=== PATIENT | female | born 1980 ===

== ENCOUNTER 2017-04-14 16:30 | Inpatient (IN) | payer MEDICAID ==
[2017-04-14] MEDS: Lactated Ringer's 1,000 ML IV SCH ×2 (17:00→17:45)
[2017-04-14 18:02] LABS: BASO % 0.5 % (0.0-2.0); EOS % 0.2 % (0.0-4.0); HEMATOCRIT 36.9 % (34.0-47.0); LYMPH # 1.7 K/uL (1.0-4.3); LYMPH % 17.8 % (20.0-40.0); MEAN CELL VOLUME 84.8 fl (81.0-99.0); MEAN CORPUSCULAR HEMOGLOBIN 27.8 pg (27.0-31.0); MEAN CORPUSCULAR HGB CONC 32.8 g/dL (33.0-37.0); MEAN PLATELET VOLUME 8.8 fl (7.2-11.7); MONO # 0.5 K/uL (0.0-0.8); MONO % 5.5 % (0.0-10.0); NEUT # 7.3 K/uL (1.8-7.0); NRBC % 0.1 % (0.0-0.0); RED CELL DISTRIBUTION WIDTH 14.1 % (11.5-14.5); WHITE BLOOD COUNT 9.6 K/uL (4.8-10.8)
--- NOTE | 2017-04-14 18:56 | OBHP ---
Datetime: 04/14/2017 17:30 Pelvic Type - PN: Adequate Extremities - PN: Normal Abdomen - PN: Normal Back - PN: Normal Breast - PN: Not Done Lungs - PN: Normal Heart - PN: Normal Thyroid - PN: Normal Neurologic - PN: Normal HEENT - PN: Normal General - PN: Normal Presentation-Admit: Vertex FHR - Baseline A Provider: 130 Gestation - Est Wks by US: 39.2 (Annotations: Data stored by CPN on behalf of user) IP Hx Assessment: The History has been Reviewed and is Current EGA AdmitDate IP: 39.2 IP Chief Complaint: Uterine contractions NICHD Variability Prov Fetus A: Moderate 6-25bpm NICHD Accel Fetus A IP Provider: 15X15 FHR Category Provider Fetus A: Category I NICHD Decel Fetus A IP Provider: None Dilatation, Provider: 5 Effacement, Provider: 90 Station, Provider: -1 Genitourinary Exam: Normal DTRs - PN: Normal Datetime: 04/14/2017 17:19 IP Adm Impression: Term, intrauterine ; Active labor IP Admit Plan: Admit to unit; Initiate labor protocol Admit Comment, IP Provider: 36 y/o at 39.2 presenting with cc of contractions since 10am this m orning, pt report contractions are now about 5mins about and rates the pain about to be about a 8/10. Denies any vaginal bleeding or leakage of fluid. + movement. No other complaints otherwise PMHX: denies PSHX: denies Allergies: denies OBHX: Previous @ 39+7 , child about 6pounds no complications care: [facility] No complications with this pregancy GBS neg Rubella- non immune Rh postive RPR, HIV- negative PE Gen: pleasant, no acute distress Resp: CTA B/L Card: RRR, S1 S2 present Abdomen: Gravid uterus, soft, BS+ Extremities: trace edema b/l, no cyanosis cervix: 5/90/-1 A/p 36 y/o female at at 39.2 in an uncomplicated presenting in active labor Pt will be admited to labor and delivery for further management Levy Smith PGY 1 OB Hospitalist note: This pt was seen and examined by me. Agree with above note. MEMO IP Fetus A Comments: Sonogram cephalic Comments, ACOG Physical Exam: ROS: General: no weakness; no fatigue HEENT: no ESTRADA; no visual dist CV: no palpitations; no no CP GI: no N/V no diarhea No epigastric pain; non radiating : no F/U/D MS: No joint pain Pool Provider: Negative Vital Signs Provider: Reviewed
[2017-04-14] MEDS ORDERED: Fentanyl/Bupivacaine HCl 250 ML EPI ONE (19:07)
--- NOTE | 2017-04-14 19:15 | OBADHP ---
Datetime: 04/14/2017 17:30 Admit Comment, IP Provider: 36 y/o at 39.2 presenting with cc of contractions since 10am this m orning, pt report contractions are now about 5mins about and rates the pain about to be about a 8/10. Denies any vaginal bleeding or leakage of fluid. + movement. No other complaints otherwise PMHX: denies PSHX: denies Allergies: denies OBHX: Previous @ 39+7 , child about 6pounds no complications No complications with this pregancy GBS neg Rubella- non immune Rh postive RPR, HIV- negative A/p 36 y/o female at at 39.2/ active labor Admit to L_D Necessary consents obtained Labs as ordered continue to monitor status manage labor as ordered Luis Lockett PGY 3 ROS: General: no weakness; no fatigue HEENT: no ESTRADA; no visual dist CV: no palpitations; no no CP GI: no N/V no diarhea No epigastric pain; non radiating : no F/U/D MS: No joint pain OB Hospitalist note: This pt was seen and examined by me. Agree with above note. MAHNDO Pelvic Type - PN: Adequate Extremities - PN: Normal Abdomen - PN: Normal Back - PN: Normal Breast - PN: Not Done Lungs - PN: Normal Heart - PN: Normal Thyroid - PN: Normal Neurologic - PN: Normal HEENT - PN: Normal General - PN: Normal Presentation-Admit: Vertex FHR - Baseline A Provider: 130 Gestation - Est Wks by US: 39.2 (Annotations: Data stored by CPN on behalf of user) IP Hx Assessment: The History has been Reviewed and is Current IP Chief Complaint: Uterine contractions NICHD Variability Prov Fetus A: Moderate 6-25bpm NICHD Accel Fetus A IP Provider: 15X15 FHR Category Provider Fetus A: Category I NICHD Decel Fetus A IP Provider: None Dilatation, Provider: 5 Effacement, Provider: 90 Station, Provider: -1 Genitourinary Exam: Normal DTRs - PN: Normal EGA AdmitDate IP: 39.2 Datetime: 04/14/2017 17:19 IP Fetus A Comments: Sonogram cephalic Comments, ACOG Physical Exam: ROS: General: no weakness; no fatigue HEENT: no ESTRADA; no visual dist CV: no palpitations; no no CP GI: no N/V no diarhea No epigastric pain; non radiating : no F/U/D MS: No joint pain Pool Provider: Negative Vital Signs Provider: Reviewed IP Adm Impression: Term, intrauterine ; Active labor IP Admit Plan: Admit to unit; Initiate labor protocol
--- NOTE | 2017-04-14 19:49 | OBPN ---
Datetime: 04/14/2017 19:44 IP Progress Impression: Reassuring heart rate IP Informed Consent Obtain: Vaginal Delivery; Risks, Benefits and Alternatives Discussed IP Procedures: Artificial ROM IP Progress Plan: Continue present management; Augmentation Pool Provider: Positive Membranes, Provider: Ruptured Contraction Comments Provider: 2m FHR - Baseline A Provider: 125 Presentation-Admit: Vertex IP Progress Note Comment: She rec'd epidural...she feels much better. A: IUP at 39w active phase of labor PLAN: AROM clear fluid augmentatoin NICHD Accel Fetus A IP Provider: 15X15 FHR Category Provider Fetus A: Category I NICHD Variability Prov Fetus A: Moderate 6-25bpm Dilatation, Provider: 6 Effacement, Provider: 80 Station, Provider: -1 NICHD Decel Fetus A IP Provider: None Datetime: 04/14/2017 17:30 Gestation - Est Wks by US: 39.2 (Annotations: Data stored by CPN on behalf of user) Datetime: 04/14/2017 17:19 IP Fetus A Comments: Sonogram cephalic Vital Signs Provider: Reviewed
[2017-04-14] MEDS ORDERED: Lactated Ringer's 1,000 ML IV SCH (20:00)
[2017-04-14] MEDS ORDERED: Oxycodone/Acetaminophen 5/325 mg Tab PO PRN ×4 (21:44→23:47)
[2017-04-14] MEDS ORDERED: Benzocaine/Menthol SPRAY TOP PRN ×2 (21:44→23:47)
--- NOTE | 2017-04-15 01:59 | OBDS ---
DELIVERY PERSONNEL Delivery Doctor: Darius Cortez DO Test Puller: Lupe Milan RN Anesthesiologist: Gunnar Resident: Darin MATERNAL INFORMATION Delivery Anesthesia: Epidural Medications in Delivery: Oxytocin 20 units in 1000 mL; Lidocaine Estimated Blood Loss (ml): 200 Placenta Cultured: No Maternal Complications: None Provider Comments: Over intact perineum, of live male at 20:39, Weight 3300gm, 9/9 . loose Nuchal cord was noted. Infant was bulb suctioned nasopharygeally and started crying spontaneo usly. umbilical cord was clamped and cut by father. Skin to skin was done with mother. Placenta was d elivered intact spontaneously. Repair was done as above. EBL 200cc. patient and baby remained stable in --- Shashank Webster, PGY-1 OB Hospitalist note: This pt delivered by me. Agree with above note. MAHNDO LABOR SUMMARY EDC: 04/19/2017 00:00 No. Babies in Womb: 1 Attempted: No Labor Anesthesia: Epidural LABOR INFORMATION Reason for Induction: Not Applicable Onset of Labor: 04/14/2017 14:00 Complete Dilatation: 04/14/2017 20:20 Oxytocin: N/A Group B Beta Strep: Negative Steroids Given: None Reason Steroids Not Administered: Not Applicable MEMBRANES Membranes Rupture Method: Artificial Rupture of Membranes: 04/15/2017 19:45 Length of Rupture (hrs): -23.10 Amniotic Fluid Color: Clear Amniotic Fluid Amount: Moderate Amniotic Fluid Odor: Normal STAGES OF LABOR Stage 1 hrs: 6 Stage 1 min: 20 Stage 2 hrs: 0 Stage 2 min: 19 Stage 3 hrs: 0 Stage 3 min: 14 Total Time in Labor hrs: 6 Total Time in Labor min: 53 VAGINAL DELIVERY Episiotomy: None Laceration Extension: Second Degree Laceration Type: Perineal Laceration Repair: Yes Laceration Repair Note: Repair of second degree perineal laceration with 1% 3cc local lidocaine and 2-0 vicryl rapid. Initial Vag Sponge Count: 10 Final Vag Sponge Count: 10 Initial Vag Sharps Count: 3 Final Vag Sharps Count: 3 Sponge Count Correct: Yes Sharps Count Correct: Yes Count Comment: 5 songes counted 3 sharps counted MD aware CSECTION DELIVERY Primary Indication: N/A Secondary Indication: N/A CSection Incision: N/A BABY A INFORMATION Infant Delivery Date/Time: 04/14/2017 20:39 Method of Delivery: Vaginal Born in Route : No : N/A Forceps: N/A Vacuum Extraction: N/A Shoulder Dystocia : No SHOULDER DYSTOCIA BABY A Infant Delivery Date/Time: 04/14/2017 20:39 PRESENTATION/POSITION BABY A Presentation: Cephalic Cephalic Presentation: Vertex PLACENTA INFORMATION BABY A Placenta Delivery Time : 04/14/2017 20:53 Placenta Method of Delivery: Spontaneous Placenta Status: Delivered SCORES BABY A Heart Rate 1 min: >100 bpm Resp Effort 1 min: Good Cry Reflex Irritability 1 min: Cough or Sneeze or Pulls Away Muscle Tone 1 min: Active Motion Color 1 min: Body [place], Extremities Blue SCORE 1 MIN: 9 Heart Rate 5 min: >100 bpm Resp Effort 5 min: Good Cry Reflex Irritability 5 min: Cough or Sneeze or Pulls Away Muscle Tone 5 min: Active Motion Color 5 min: Body [place], Extremities Blue SCORE 5 MIN: 9 INFANT INFORMATION BABY A Gestational Age at Delivery: 39.2 Gestational Status: Term Outcome : Liveborn Condition : Stable Sex: Male IDENTIFICATION/MEDS BABY A ID Band Number: [id number] ID Band Location: Left Leg; Left Arm WEIGHT/LENGTH BABY A Infant Birthweight (gms): 3300 Weight (lb): 7 Weight (oz): 4 CORD INFORMATION BABY A No. Cord Vessels: 3 Nuchal Cord : N/A Cord Blood Taken: Yes Infant Suction: None; Mouth
[2017-04-15 08:09] LABS: MEAN CELL VOLUME 83.8 fl (81.0-99.0); MEAN CORPUSCULAR HEMOGLOBIN 27.7 pg (27.0-31.0); RED CELL DISTRIBUTION WIDTH 14.4 % (11.5-14.5)
[2017-04-15] MEDS ORDERED: Rubella Virus Vaccine Inj SC ONE (17:22)
--- NOTE | 2017-04-15 20:05 | OBPPN ---
Datetime: 04/15/2017 07:12 PP Pain Prov: Within normal limits PP Nausea Prov: Denies PP Flatus Prov: No PP BM Prov: No PP Breasts Prov: Normal PP Heart Prov: Normal PP Lungs Prov: Normal PP Abdomen/Uterus Prov: Normal PP Lochia Prov: Normal PP Vulva/Perineum Prov: Normal PP CVA Tenderness Prov: Normal PP Extremities Prov: Normal PP Impression Prov: Normal progression; Pain PP Plan Prov: Continue present management PP Progress Note Prov: S: 36 yo s/p NVD on 04/14/17 at 20:39. Pt. is seen and examined at [facility] this AM. No overnight events. Pt reports back pain. Pt is ambulating without any difficulties and v oiding freely. Lochia is similar to light menses in volume. no BM, Denies fever/chills, diarrhea, na usea/vomiting, chest pain, dyspnea, and dizziness. Of note, O: VS: stable GEN: NAD Cardio: s1s2, no M/G/R Resp: clear breath sounds b/l Abdomen: BS+, NT, Uterus is firm and at the level of the umbilicus. EXT: No edema, calves nontender NEURO/PSYCHI: AAOx3, no grossly focal deficit, preserved affect and mood. Assessment/Plan: 36 yo s/p NVD on 04/14/17 at 20:39. PPD#1 Ibuprofen 600mg for pain. Colace 100mg PO BID for constipation Encourage and ambulating F/u CBC post-delivery: Rubella before discharge Tdap on 02/13 --- Shashank Webster, PGY-1 OB Hospitalist note: This pt was seen and examined by me. Agree with above note. MEMO IP PP Procedures: None IP PP Procedures Comments: Rubella before d/c Vital Signs Provider PP: Reviewed; Within Normal Limits
--- NOTE | 2017-04-16 07:44 | CP.PCM.PN ---
Subjective - Date & Time of Evaluation Date of Evaluation: 04/16/17 Time of Evaluation: 08:00 - Subjective Subjective: Patient denies positional headache since noon yesterday. She's been able to be upright and ambulate around her room without pain or difficulty. She agrees to have the epidural removed without blood patch. Objective - Vital Signs/Intake and Output Vital Signs (last 24 hours): Temp Pulse Resp BP Pulse Ox 96 H 18 106/69 04/14/17 17:17 04/14/17 17:17 04/14/17 17:17 - Medications Medications: Current Medications Benzocaine/Menthol (Dermoplast) 1 sprays TOP PRN PRN PRN Reason: Perineal Discomfort Last Admin: 04/15/17 00:07 Dose: 1 sprays Docusate Sodium (Colace) 100 mg PO BID JANAY Last Admin: 04/15/17 17:09 Dose: 100 mg Ibuprofen (Motrin Tab) 600 mg PO Q6 PRN PRN Reason: Pain, Mild (1-3) Last Admin: 04/15/17 21:20 Dose: 600 mg Oxycodone/Acetaminophen (Percocet 5/325 Mg Tab) 1 tab PO Q4 PRN PRN Reason: Pain, moderate (4-7) Stop: 04/17/17 21:45 Oxycodone/Acetaminophen (Percocet 5/325 Mg Tab) 2 tab PO Q4 PRN PRN Reason: Pain, severe (8-10) Stop: 04/17/17 21:45 - Labs Labs: 04/15/17 06:00 - Neck Exam Neck Exam: Full ROM, Normal Inspection - Respiratory Exam Respiratory Exam: NORMAL BREATHING PATTERN Assessment and Plan - Assessment and Plan (Free Text) Assessment: 36 yo woman s/p . Epidural removal was delayed until POD #2 due to possible post-dura puncture. Patient hasn't had headache despite being upright. - epidural d/nikki, tip intact - will monitor - encourage fluids, bed rest
[2017-04-16] MEDS ORDERED: Measles, Mumps, and Rubella 0.5 ML VIAL SC ONE (08:00)
[2017-04-16 19:36] VITALS: BP 95/63; PULSE 83; RESP 20; TEMP 97.8; O2SAT 100
--- NOTE | 2017-04-26 07:19 | OBDS ---
DELIVERY PERSONNEL Delivery Doctor: Darius Cortez DO [employer] Teacher: Lupe Milan RN Anesthesiologist: Gunnar Resident: Darin MATERNAL INFORMATION Delivery Anesthesia: Epidural Medications in Delivery: Oxytocin 20 units in 1000 mL; Lidocaine Estimated Blood Loss (ml): 200 Placenta Cultured: No Maternal Complications: None Provider Comments: Over intact perineum, of live male at 20:39, Weight 3300gm, 9/9 . loose Nuchal cord was noted. Infant was bulb suctioned nasopharygeally and started crying spontaneo usly. umbilical cord was clamped and cut by father. Skin to skin was done with mother. Placenta was d elivered intact spontaneously. Repair was done as above. EBL 200cc. patient and baby remained stable in --- Shashank Webster, PGY-1 OB Hospitalist note: This pt delivered by me. Agree with above note. MAHNDO LABOR SUMMARY EDC: 04/19/2017 00:00 No. Babies in Womb: 1 Attempted: No Labor Anesthesia: Epidural LABOR INFORMATION Reason for Induction: Not Applicable Onset of Labor: 04/14/2017 14:00 Complete Dilatation: 04/14/2017 20:20 Oxytocin: N/A Group B Beta Strep: Negative Steroids Given: None Reason Steroids Not Administered: Not Applicable MEMBRANES Membranes Rupture Method: Artificial Membranes Rupture Method: Artificial Rupture of Membranes: 04/15/2017 19:45 Rupture of Membranes: 04/14/2017 19:45 Length of Rupture (hrs): -23.10 Length of Rupture (hrs): 0.90 Amniotic Fluid Color: Clear Amniotic Fluid Color: Clear Amniotic Fluid Amount: Moderate Amniotic Fluid Amount: Moderate Amniotic Fluid Odor: Normal Amniotic Fluid Odor: Normal STAGES OF LABOR Stage 1 hrs: 6 Stage 1 min: 20 Stage 2 hrs: 0 Stage 2 min: 19 Stage 3 hrs: 0 Stage 3 min: 14 Total Time in Labor hrs: 6 Total Time in Labor min: 53 VAGINAL DELIVERY Episiotomy: None Laceration Extension: Second Degree Laceration Type: Perineal Laceration Repair: Yes Laceration Repair Note: Repair of second degree perineal laceration with 1% 3cc local lidocaine and 2-0 vicryl rapid. Initial Vag Sponge Count: 10 Final Vag Sponge Count: 10 Initial Vag Sharps Count: 3 Final Vag Sharps Count: 3 Sponge Count Correct: Yes Sharps Count Correct: Yes Count Comment: 5 songes counted 3 sharps counted MD aware CSECTION DELIVERY Primary Indication: N/A Secondary Indication: N/A CSection Incision: N/A BABY A INFORMATION Infant Delivery Date/Time: 04/14/2017 20:39 Method of Delivery: Vaginal Born in Route : No : N/A Forceps: N/A Vacuum Extraction: N/A Shoulder Dystocia : No SHOULDER DYSTOCIA BABY A Delivery Date/Time: 04/14/2017 20:39 PRESENTATION/POSITION BABY A Presentation: Cephalic Presentation: Cephalic Cephalic Presentation: Vertex PLACENTA INFORMATION BABY A Placenta Delivery Time : 04/14/2017 20:53 Placenta Method of Delivery: Spontaneous Placenta Status: Delivered SCORES BABY A Heart Rate 1 min: >100 bpm Resp Effort 1 min: Good Cry Reflex Irritability 1 min: Cough or Sneeze or Pulls Away Muscle Tone 1 min: Active Motion Color 1 min: Body [place], Extremities Blue SCORE 1 MIN: 9 Heart Rate 5 min: >100 bpm Resp Effort 5 min: Good Cry Reflex Irritability 5 min: Cough or Sneeze or Pulls Away Muscle Tone 5 min: Active Motion Color 5 min: Body [place], Extremities Blue SCORE 5 MIN: 9 INFORMATION BABY A Gestational Age at Delivery: 39.2 Gestational Status: Term Infant Outcome : Liveborn Condition : Stable Infant Sex: Male IDENTIFICATION/MEDS BABY A ID Band Number: [id number] ID Band Location: Left Leg; Left Arm WEIGHT/LENGTH BABY A Infant Birthweight (gms): 3300 Infant Weight (lb): 7 Infant Weight (oz): 4 CORD INFORMATION BABY A No. Cord Vessels: 3 Nuchal Cord : N/A Cord Blood Taken: Yes Infant Suction: None; Mouth
== END 2017-04-16 13:30 | disposition home or self-care (01) | DRG 373 ==
LOC: H.EROB2 16:30 → H.L&D 17:12 → H.OB/GYN 23:37
PROVIDERS: ADMIT Obstetrics & Gynecology; ATTEND Obstetrics & Gynecology
PROC: 10E0XZZ Delivery of Products of Conception, External Approach (ICD-10-PCS; principal; 2017-04-14)
PROC: 0KQM0ZZ Repair Perineum Muscle, Open Approach (ICD-10-PCS; 2017-04-14)
PROC: 4A1HXCZ Monitoring of Products of Conception, Cardiac Rate, External Approach (ICD-10-PCS; 2017-04-14)
DX: O69.81X0 Labor and delivery complicated by cord around neck, without compression, not applicable or unspecified (principal); K59.00 Constipation, unspecified; O70.1 Second degree perineal laceration during delivery; Z37.0 Single live birth; Z3A.39 39 weeks gestation of pregnancy